=== PATIENT | male | born 1970 | race Caucasian/White ===

== ENCOUNTER 2025-07-02 05:22 | Emergency (ER) | payer OTHER, SELFPAY ==
[2025-07-02 05:24] VITALS: BP 132/90
[2025-07-02 05:45] VITALS: BMI 26.4
--- NOTE | 2025-07-02 06:15 | ED.GENMED ---
History of Present Illness
<Jacy Gorman, DO - Last Filed: 07/02/25 07:42>
General
Chief Complaint: Head Injury
Time Seen by Provider: 07/02/25 06:00
<Samara Ann MD, Resident - Last Filed: 07/02/25 07:44>
General
Source: patient
Exam Limitations: none
Nursing documentation reviewed up to this point in time: agreed with
History of Present Illness
History of Present Illness:
54 year old male with no significant past medical history comes to the emergency department due to persistent headaches for the past month or so following trauma to his head. Patient was down in [place] where he was lifting an [place]
Chair which fell on his head. The chair hit the front/top of his head. He has had localized headaches in that area since then with pain intensity ranging from 1-4/10 with pain increasing with exertion. Patient has been taking advil for the pain and
says that the medication does help. He also states that he has been feeling a bit spacey and foggy and states that he has a history of Alzheimer's in his family. Patient denies having any chest pain, shortness of breath, nausea or vomiting.
Past History
<Samara Ann MD, Resident - Last Filed: 07/02/25 07:44>
Past History
ED Past Medical History: None
Social History
Tobacco: Non-smoker
Alcohol: Occasional
Drug: None
Review of Systems
<Samara Ann MD, Resident - Last Filed: 07/02/25 07:44>
Review of Systems
Allergies reviewed?: Yes
Constitutional: Reports no symptoms
EENT: Reports no symptoms
Respiratory: Reports no symptoms
Cardiac: Reports no symptoms
ABD/GI: Reports no symptoms
: Reports no symptoms
Musculoskeletal: Reports no symptoms
Skin: Reports no symptoms
Neurological: Reports headache (Front of the head)
Endocrine: Reports no symptoms
Hematologic/Lymphatic: Reports no symptoms
Psychiatric: Reports no symptoms
Phy Exam
<Samara Ann MD, Resident - Last Filed: 07/02/25 07:44>
General Physical Exam
General Presentation: well appearing and no apparent distress
General Skin: warm and dry
General Habitus: normal
General Mental: alert
General Hydration: appears well hydrated
Eye Exam
Eye Exam: PERRL and EOMI
Eye Exam General: lateral nystagmus: right (Possible mild nystagmus, hard to determine)
Cardiovascular Exam
Cardiovascular Exam: regular rate/rhythm, no edema and no murmur
Pulmonary Exam
Pulmonary Exam: lungs clear, no respiratory distress, no crackles and no wheezing
Gastrointestinal Exam
Gastrointestinal Exam: non tender, soft and non distended
Neurological Exam
Neurological Exam: alert, oriented x3, CN II-XII intact and no motor deficits
Psychiatric Exam
Psychiatric Exam: normal mood/affect
Course
<Jacy Gorman, DO - Last Filed: 07/02/25 07:42>
Orders/Labs/Results
Orders:
Orders
07/02/25 06:19
CT Head W/o Iv Contrast Urgent
Comment:
Reason For Exam: Persistent Headache for past month
Vital Signs
Initial and Last Documented VS:
Initial Vital Signs
Temp Pulse Resp BP Pulse Ox
97.8 F 76 20 132/90 98
07/02/25 05:24 07/02/25 05:24 07/02/25 05:24 07/02/25 05:24 07/02/25 05:24
Last Documented Vital Signs
Temp Pulse Resp BP Pulse Ox
97.8 F 77 18 125/86 98
07/02/25 05:24 07/02/25 06:02 07/02/25 06:02 07/02/25 07:00 07/02/25 07:02
<Samara Ann MD, Resident - Last Filed: 07/02/25 07:44>
Orders/Labs/Results
Orders:
Orders
07/02/25 06:19
CT Head W/o Iv Contrast Urgent
Comment:
Reason For Exam: Persistent Headache for past month
Vital Signs
Initial and Last Documented VS:
Initial Vital Signs
Temp Pulse Resp BP Pulse Ox
97.8 F 76 20 132/90 98
07/02/25 05:24 07/02/25 05:24 07/02/25 05:24 07/02/25 05:24 07/02/25 05:24
Last Documented Vital Signs
Temp Pulse Resp BP Pulse Ox
97.8 F 77 18 125/86 98
07/02/25 05:24 07/02/25 06:02 07/02/25 06:02 07/02/25 07:00 07/02/25 07:02
<Samara Ann MD, Resident - Last Filed: 07/02/25 07:44>
MDM/Problems Addressed
Differential Diagnosis Includes:
Post head trauma concussion, Cerebral Hematoma
MDM/Problems Addressed:
Discussed with patient that his symptoms most likely are due to concussion following head injury
Will get head CT w/o IV contrast to rule out any chance of hematoma (unlikely due to trauma taking place around one month ago)
Patient willing to get head CT as he wants some piece of mind as well
CT head upon initial review is unremarkable. Awaiting official read from Radiology
Official reading reveal no acute findings
Discussed with patient that he is most likely going through post concussion symptoms. Discussed avoiding bright lights and to not watch TV in a dark room. Continue management of pain with Advil as needed.
<Samara Ann MD, Resident - Last Filed: 07/02/25 07:44>
*Pulse Oximetry
SaO2: 99
Oxygen Mode of Delivery: Room air
Patient hypoxic: no
*Critical Care Note
Total Time (30-74mins, 75-104mins- exclusive of procedures): Not Applicable
ED Attending Note
<Jacy Gorman DO - Last Filed: 07/02/25 07:42>
ED Attending Note
Patient seen and examined by attending physician: Yes
I performed the substantive portion of visit, reviewed & personally made and approve the management plan that is documented in note by myself or JOANN.: Yes
I performed a history and physical exam of patient and discussed management with resident, I reviewed resident's note and agree with documented findings and plan of care.: Yes
ED Attending Note:
54-year-old male without significant past medical history presenting to the emergency department for headache after injury. Patient reports about a month ago he was lifting a heavy [place] chair and it struck him in the forehead. He has since
had daily headaches, which she notes are worse with exertion. He has been taking Advil, notes relief of the headache, however headache will return. Denies significant visual changes or photosensitivity. Denies weakness or numbness to extremities.
He is not on any blood thinners. Denies additional acute medical complaints. Vital signs are normal.
On exam patient resting comfortably, no acute distress or discomfort. Patient afebrile, nontoxic. No focal neurologic deficits. Ultimately suspect postconcussive syndrome. However given duration of symptoms with mechanism of injury, will screen
with CT brain imaging.
07:40 - CT negative for acute process. At this time began without concern for central neurologic process. Feel stable for discharge with continued outpatient supportive therapy. Return precautions discussed and patient verbalized understanding.
<Samara Ann MD, Resident - Last Filed: 07/02/25 07:44>
-
Portions of this chart may have been created with voice recognition software.� Occasional wrong word or��sound alike� substitutions may have occurred due to the inherent limitations of voice recognition software.
Discharge Plan
Departure
Patient Disposition: Home (Routine Discharge)
Date of Disposition: 07/02/25
Time of Disposition: 07:42
Patient with high blood pressure during this ER visit?: Yes
Condition: Good
Discharge Problem:
Post-concussion headache
Instructions: Concussion, Adult (DC), BLOOD PRESSURE
Prescriptions:
No Action
No Current Medications
0
Referrals:
NONE,* [Family Provider, Internal Medicine]
Activity Restrictions/Additional Instructions:
Discussed with patient that he most likely has post concussion headaches
Discussed to avoid bright lights and avoid watching TV in a dark room
Discussed that you can manage pain with over the counter Advil as needed
Interventions
Interventions:
*Risk Screen - Suicide Last Done: 07/02/25 05:24
*General Assessment Last Done: 07/02/25 05:45
*Neglect/Abuse Screening Last Done: 07/02/25 05:24
*ED- Fall Risk Assessment Last Done: 07/02/25 05:45
*ED COVID-19 Vaccine History Last Done: 07/02/25 05:45
ED- Neurological Assessment Last Done: 07/02/25 06:59
ED-Skin Assessment Last Done: 07/02/25 05:47
Discharge Date and Time
Print Language: SUDANESE
[2025-07-02 06:32] VITALS: BP 137/94
[2025-07-02 07:00] VITALS: BP 125/86
== END 2025-07-02 07:50 | disposition home or self-care (01) ==
LOC: EMR 05:22
PROVIDERS: EMERGENCY PHYSICIAN Student in an Organized Health Care Education/Training Program
DX: G44.309 Post-traumatic headache, unspecified, not intractable (principal); F07.81 Postconcussional syndrome; W22.8XXA Striking against or struck by other objects, initial encounter; R03.0 Elevated blood-pressure reading, without diagnosis of hypertension
CPT/HCPCS: 99284; 70450